=== PATIENT | male | born 1955 | race Caucasian/White ===

== ENCOUNTER → 2018-04-01 12:07 | Outpatient (CLI) | payer BC, SELFPAY ==
--- NOTE | 2018-04-01 13:00 | US_ITS ---
US biopsy guidance HISTORY: Right-sided neck mass ITS.REASON: PARATHYROID NEOPLASM ORDERING PHYSICIAN: Marcellus Falcon MD PATIENT AGE: 62 years COMPARISON: None TECHNIQUE: Following obtaining informed consent, using aseptic technique and local anesthesia with buffered lidocaine, fine-needle aspiration was performed of the nodule of interest using sonographic guidance. 2 passes were made into the nodule with a 25-gauge needle and one pass made with a 21-gauge needle. Specimen was given to cytology. The patient tolerated the procedure well without evidence of immediate complications and left the ultrasound suite in stable condition. CYTOLOGY:Squamous cell carcinoma IMPRESSION: Successful and uneventful sonographic guided fine needle aspiration of the right neck mass positive for squamous cell carcinoma
--- NOTE | 2018-04-01 13:00 | US_ITS ---
US soft tissue head and neck CLINICAL INDICATION: Right neck mass ITS.REASON: PARATHYROID NEOPLASM ORDERING PHYSICIAN: Marcellus Falcon MD PATIENT AGE: 62 years Comparison: 02/21/2018 CT Scan outside institution FINDINGS: Ultrasound obtained of the palpable abnormality in the right neck shows a 3.2 x 3.2 cm hypoechoic mass along the posterior aspect of the parotid gland. On reviewing the CT scan it is in clear whether the mass actually involves the parotid gland or is just deep to the parotid gland. If this is clinically relevant pain, would consider MRI of the parotid as there is moderate amount of streak artifact from the patient's dental work. The right submandibular gland, left parotid gland, left-sided mandibular gland have an unremarkable appearance. IMPRESSION: 3 cm hypoechoic mass along the posterior deep aspect of the right parotid suspicious for neoplasm
== END ==
PROVIDERS: PCP Family Medicine; Visit Provider Otolaryngology
DX: C07 Malignant neoplasm of parotid gland (principal)
CPT/HCPCS: 10022; 76536; 76942